=== PATIENT | male | born 1935 | race Caucasian/White ===

== ENCOUNTER → 2017-11-27 | Outpatient (REF) ==
[~2017-11-27] MED LIST: ANTIHISTAMINE; ASPIRIN E.C. 8181 MG PO; CLARITIN; PROVENTIL0.09 MG/A1 IH; TUSS PO; TYLENOL 325MG325 MG PO; ZITHROMAX Z PA250 MG PO
== END ==
LOC: ZLAB.WCH 08:42
DX: Z01.89 Encounter for other specified special examinations (principal)

== ENCOUNTER → 2017-12-01 | Outpatient (REF) | LOC: ZLAB.WCH 16:11 | DX: Z01.89 Encounter for other specified special examinations (principal) ==